=== PATIENT | male | born 1935 | race Caucasian/White ===

== ENCOUNTER 2018-08-18 11:38 | Observation (INO) | payer OTHER ==
[~2018-08-18] VITALS: Ht 170.2 cm; Wt 92.5 kg
[2018-08-18] VITALS: BP 120/78
[~2018-08-18 11:38] MED LIST: ASPIRIN EC81 M1 PO; PLAVIX 75 MG TA75 M1 PO; PREVACID15 MG PO; TOPROL XL50 MG PO; VYTORIN 10-201 EACH PO; VYTORIN 10-401 EACH PO
[2018-08-18 11:41] VITALS: BP 103/61
[2018-08-18] MEDS ORDERED: SIMVASTATIN40 MG PO (11:47)
[2018-08-18] MEDS ORDERED: OMEPRAZOLE40 MG PO (11:47)
[2018-08-18] MEDS ORDERED: FLOMAX0.4 MG PO (11:47)
[2018-08-18] MEDS ORDERED: PROSCAR 5MG TABL5 MG PO (11:47)
[2018-08-18 12:06] LABS: ABSOLUTE EOSINOPHILS 0.3 thou/uL (0.0-0.7); ABSOLUTE LYMPHOCYTES 0.8 thou/uL (0.8-5.3); ABSOLUTE MONOCYTES 0.6 thou/uL (0.0-1.2); ABSOLUTE NEUTROPHILS 5.1 thou/uL (1.6-8.1); BASOPHILS 0.5 %; EOSINOPHILS 3.9 %; HEMATOCRIT 45.6 % (42.0-52.0); HEMOGLOBIN 15.9 gm/dL (14.0-18.0); LYMPHOCYTES 11.9 %; MCHC 34.8 g/dL (28.0-37.0); MCV 92.1 fL (80.0-100.0); MONOCYTES 8.9 %; MPV 8.5 fl. (7.2-11.1); NUCLEATED RBCS 0 /100WBC; PLATELET COUNT* 190 thou/uL (150-400); POLYS 74.8 %; RBC 4.96 mil/uL (4.50-6.00); RDW-CV 15.4 % (10.5-14.5); WBC 6.9 thou/uL (4.0-11.0)
[2018-08-18 12:10] LABS: ANION GAP 9 mmol/L (7-16); BUN 22 mg/dL (7-18); CALCIUM 9.2 mg/dL (8.5-10.1); CHLORIDE 106 mmol/L (98-107); CO2 28 mmol/L (21-32); CREATININE 1.1 mg/dL (0.6-1.3); GLUCOSE 124 mg/dL (70-99); POTASSIUM 4.4 mmol/L (3.5-5.1); SODIUM 143 mmol/L (136-145)
[2018-08-18 12:20] LABS: ALBUMIN 4.2 g/dL (3.4-5.0); ALKALINE PHOSPHATASE 57 U/L (46-116); LIPASE 87 U/L (73-393); MAGNESIUM 2.1 mg/dL (1.8-2.4); NT-PRO BRAIN NAT PEPTIDE 116 pg/mL (<300); SGOT 17 U/L (15-37); SGPT 24 U/L (30-65); TOTAL PROTEIN 7.8 g/dL (6.4-8.2); TROPONIN-I LEVEL <0.06 ng/mL (<0.06)
[2018-08-18 16:40] VITALS: BP 116/69
[2018-08-18 18:21] VITALS: BP 114/70
[2018-08-18 20:10] VITALS: BP 142/77
[2018-08-19] VITALS: BP 100/78
[2018-08-19 04:00] VITALS: BP 120/57
[2018-08-19 04:40] LABS: ABSOLUTE EOSINOPHILS 0.4 thou/uL (0.0-0.7); ABSOLUTE LYMPHOCYTES 1.7 thou/uL (0.8-5.3); ABSOLUTE MONOCYTES 0.6 thou/uL (0.0-1.2); ABSOLUTE NEUTROPHILS 2.5 thou/uL (1.6-8.1); BASOPHILS 0.9 %; EOSINOPHILS 7.6 %; HEMATOCRIT 43.2 % (42.0-52.0); HEMOGLOBIN 14.9 gm/dL (14.0-18.0); LYMPHOCYTES 32.2 %; MCH 31.6 pg (26.0-34.0); MCHC 34.5 g/dL (28.0-37.0); MCV 91.6 fL (80.0-100.0); MONOCYTES 11.8 %; MPV 8.5 fl. (7.2-11.1); NUCLEATED RBCS 0 /100WBC; PLATELET COUNT* 183 thou/uL (150-400); POLYS 47.5 %; RBC 4.72 mil/uL (4.50-6.00); RDW-CV 15.5 % (10.5-14.5); WBC 5.3 thou/uL (4.0-11.0)
[2018-08-19 05:00] LABS: ANION GAP 8 mmol/L (7-16); BUN 13 mg/dL (7-18); CALCIUM 8.9 mg/dL (8.5-10.1); CHLORIDE 108 mmol/L (98-107); CHOLESTEROL 141 mg/dL (<200); CO2 27 mmol/L (21-32); CREATININE 0.9 mg/dL (0.6-1.3); GLUCOSE 114 mg/dL (70-99); HDL CHOLESTEROL 45 mg/dL (>40); LDL CHOLESTEROL 71 mg/dL (<100); MAGNESIUM 2.1 mg/dL (1.8-2.4); POTASSIUM 4.5 mmol/L (3.5-5.1); SODIUM 143 mmol/L (136-145); TC:HDL 3.1 Ratio (Not establshd); TRIGLYCERIDE 125 mg/dL (<150); VLDL 25 mg/dL (<40)
[2018-08-19 05:01] LABS: SERUM ASSESSMENT Clear
--- NOTE | 2018-08-19 07:37 | NUR ---
PT CARE ASSUMED AT 1930. SAT MAINTAINED IN RA. ALERT AND ORIENTED X4. CALL LIGHT WITHIN REACH AND BED IN LOW POSIITON. DENIES PAIN AND SOB. HOURLY ROUNDING DONE FOR PT SAFETY.
[2018-08-19 07:42] VITALS: BP 107/73
--- NOTE | 2018-08-19 10:43 | CON ---
[address] [address] CONSULTATION Name: LAURA KING Room: [address] IN .R.#: [id number] Admission: 08/18/18 Attend Phys: Bipin Donahue MD Discharge: Date of : 37 Report #: [id number] THIS REPORT FOR: //name// CC: Canelo Lester MD [facility] Gudelia Mendiola CARDIOLOGY CONSULTATION INDICATION: Chest pain. HISTORY OF PRESENT ILLNESS: The patient is a very pleasant 83-year-old gentleman with history of coronary artery disease. He has had percutaneous coronary intervention in 2005, 2011 and 2017. There is no history of myocardial infarction. He has preserved left ventricular systolic function by noninvasive studies. He presents to the Emergency Room this morning after working on a deck in his backyard and having back pain and chest pain that he describes as similar to angina. He has had in the past. EKG did not show any acute ST elevation. His initial troponin is less than 0.06. The pain has since resolved. The patient is without cardiac complaint at this time. He does report diaphoresis with the chest discomfort, but denies any other shortness of breath or nausea. PAST MEDICAL HISTORY: 1. Coronary artery disease. 2. Prostate cancer, currently on hormonal therapy. 3. Hyperlipidemia. 4. Nephrolithiasis. FAMILY HISTORY: Father had a heart attack at age 51. SOCIAL HISTORY: The patient is a lifelong nonsmoker. He does not drink alcohol. He is . His is with him today. ALLERGIES: None. HOME MEDICATIONS: Simvastatin 40 mg daily, omeprazole 20 mg daily, aspirin 162 mg daily, Nitrostat p.r.n. REVIEW OF SYSTEMS: A 14-point review of systems was positive for chest discomfort as outlined above, recently diagnosed prostate cancer with erosion to the bladder leading to hematuria, anemia, he wears glasses without acute visual change and he has dentures and bilateral hearing aids. Otherwise, 14-point review of [place] [address] CONSULTATION Name: LAURA KING Room: [address] IN ..#: [id number] Admission: 08/18/18 Attend Phys: Bipin Donahue MD Discharge: Date of : 37 Report #: [id number] PHYSICAL EXAMINATION: VITAL SIGNS: Blood pressure 103/61, pulse 63 and regular. GENERAL: This is a very pleasant gentleman who is in no distress. Mood and affect appropriate. HEENT: Extraocular muscles intact. Mucous membranes are moist. NECK: Shows no jugular venous distention. There are no carotid bruits. CHEST: Reveals clear lung khan without wheezes or rales. CARDIAC: Reveals a regular rhythm with normal S1 and S2. I do not appreciate a gallop or murmur. ABDOMEN: Reveals normal bowel sounds. The abdomen is soft, nontender. EXTREMITIES: Shows no edema. Peripheral pulses palpable. SKIN: Warm and dry. LABORATORY DATA: Reviewed. Initial troponin less than 0.06. NT-proBNP 116. Chest x-ray without acute pulmonary abnormality. EKG: No acute ST elevation. IMPRESSION AND RECOMMENDATION: 1. Chest discomfort concerning for unstable/progressive angina. We will complete rule out with serial enzymes. The patient does have recent episodes of significant bleeding. I am not starting heparin at this time. He is not on a beta brian as he has been somewhat bradycardic on no rate controlling medications. Continue daily aspirin. We will consider invasive versus noninvasive evaluation. 2. Dyslipidemia. Resume the patient's simvastatin on discharge. 3. Recently diagnosed prostate cancer with erosion to the bladder and surrounding bone. The patient is on hormonal therapy and homeopathic treatment. 4. History of hypertension, presently stable on no antihypertensive medication. <ELECTRONICALLY SIGNED> By: Rakesh Gomes MD, FACC 08/19/18 1043 1445 [id number] Gomes MD, FACC /nt
[2018-08-19] MEDS ORDERED: ASA5UEC PO (11:43)
[2018-08-19 11:46] VITALS: BP 107/73
[2018-08-19] MEDS ORDERED: ASPIR 8181 MG PO ×2 (11:49→13:49)
[2018-08-19] MEDS ORDERED: NITROGLYCERIN0.4 MG SUBLING (11:50)
--- NOTE | 2018-08-19 11:52 | NUR ---
ASSESSMENT COMPLETE. PT ALERT AND ORIENTED X4. PT DENIES CHEST PAIN. PT IS UP AD BETTIE WITH STEADY GAIT. PT NPO THIS AM FOR CARDIAC CONSULT, NICO NOW SIGNED OFF. PT IS SINUS PANKAJ ON TELE MONITOR, PROVIDERS AWARE, PT ASSYMPTOMATIC. PT IS ON ROOM AIR, VSS. IV IN LEFT AC, SALINE LOCKED. SEE ASSESSMENT AND VITALS FOR OTHER DETAILS. CALL LIGHT WITHIN REACH, WILL CONTINUE PLAN OF CARE
[2018-08-19 13:59] VITALS: BP 107/73
--- NOTE | 2018-08-19 14:28 | NUR ---
PT LEFT WITH SPOUSE. ALL BELONGINGS SENT WITH PATIENT. PT VERBALIZES UNDERSTANDING OF DC INSTRUCTIONS AND PRESCRIPTIONS GIVEN. IV DC'D WITHOUT COMPLICATIONS.
[2018-08-19 14:30] VITALS: BP 107/73
--- NOTE | 2018-08-20 13:28 | EKG ---
[place] [address] ELECTROCARDIOGRAM REPORT Name: LAURA KING Room: [address] M.R.#: [id number] Admission: 08/18/18 Attend Phys: Bipin Donahue MD Discharge: 08/19/18 Date of : 37 Report #: [id number] THIS REPORT FOR: //name// 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
== END 2018-08-19 14:30 | disposition home or self-care (01) ==
LOC: M.ERS 11:38 → M.TBA-ER 12:40 → M.2W 12:52
PROVIDERS: Emergency Medicine Emergency Medical Services; ADMIT Family Medicine
DX: R07.89 Other chest pain (principal); I25.10 Atherosclerotic heart disease of native coronary artery without angina pectoris; E78.5 Hyperlipidemia, unspecified; K21.9 Gastro-esophageal reflux disease without esophagitis; C79.51 Secondary malignant neoplasm of bone; C61 Malignant neoplasm of prostate; I10 Essential (primary) hypertension; E78.00 Pure hypercholesterolemia, unspecified; I12.9 Hypertensive chronic kidney disease with stage 1 through stage 4 chronic kidney disease, or unspecified chronic kidney disease; N18.2 Chronic kidney disease, stage 2 (mild); R42 Dizziness and giddiness; Z79.82 Long term (current) use of aspirin; Z79.899 Other long term (current) drug therapy; Z98.890 Other specified postprocedural states; Z95.5 Presence of coronary angioplasty implant and graft; N20.0 Calculus of kidney

== ENCOUNTER 2018-08-23 10:46 | Observation (INO) | payer OTHER ==
[2018-08-23] VITALS (12 sets, daily range): BP systolic 113–160; BP diastolic 60–84
[~2018-08-23] VITALS: Ht 170.2 cm; Wt 90.7 kg
--- NOTE | ~2018-08-23 | D ---
[address] [address] DISCHARGE SUMMARY Name: LAURA KING Room: [address] Brit Muir#: [id number] Admission: 08/23/18 Attend Phys: Canelo Lester MD, Discharge: Date of : 37 Report #: [id number] THIS REPORT FOR: //name// CC: Canelo Mendiola DATE OF SERVICE: 08/24/2018 DATE OF DISCHARGE: 08/24/2018 FINAL DISCHARGE DIAGNOSES: 1. Unstable angina. 2. Coronary artery disease. 3. Status post remote myocardial infarction. 4. Status post percutaneous coronary intervention of the LAD and circumflex on 08/23/2018. 5. Modest increase in troponin after stenting of the circumflex on 08/23/2018. 6. Hyperlipidemia. 7. Prostate cancer. PROCEDURES: On 08/23/2018 -- left heart catheterization, left ventriculography, selective coronary arteriography and percutaneous coronary intervention of the LAD with deployment of two drug-eluting stents in the proximal circumflex with deployment of one drug-eluting stent. 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 He has known coronary artery disease, status post prior myocardial infarction and multi-vessel stenting in 2005 several years later and 3 years ago in [place]. Recently, while working on his deck, he had severe chest and back discomfort typical of his angina radiating around to the chest. This lasted for a protracted period of time, ultimately remitting in the ER after 3 sublingual nitroglycerin tablets. He also has prostate cancer with invasion of the bone and bladder with some recent hematuria. Remarkably, in the context of hormonal therapy, the PSA is decreased from approximately 50 to 2.5 units. He is feeling much better, but did have a recent problem reflecting unstable angina. Given this data, I recommend to proceed with cardiac catheterization, which was undertaken on 08/23/2018. That study revealed tandem 90% mid and distal LAD stenosis with 90% proximal -- mid circumflex narrowing. I deployed 2 drug-eluting stents in the mid and distal LAD and one in the proximal -- mid circumflex. This was within a previously deployed stent and there was some compromise with the modest size marginal that emanated from the stented region with transitory slow flow and increase in troponin to a peak value of 15.78. The pain remitted the evening of procedure and EKG which revealed minor [facility] [address] [place] [address] DISCHARGE SUMMARY Name: LAURA KING Room: [address] MMeek#: [id number] Admission: 08/23/18 Attend Phys: Canelo Lester MD, Discharge: Date of : 37 Report #: [id number]-T alterations in the posterolateral leads return to normal by 08/24/2018. The patient ambulated in the hallways without difficulty and there was good hemostasis at the right femoral site of catheterization. LABORATORY DATA: Laboratory on 08/24/2018 revealed sodium of 139, potassium 4.3, BUN 15, creatinine 0.8 and glucose 119. Hemoglobin 15.9, white blood cell count 8800 with 196,000 platelets. DISCHARGE MEDICATIONS: The patient was discharged to home in stable condition on 08/24/2018 on the following medications: Aspirin 81 mg daily, clopidogrel or Plavix 75 mg daily with 600 mg romaine-procedural loading dose, finasteride or Proscar 5 mg daily, omeprazole 20 mg daily, simvastatin 40 mg at bedtime and tamsulosin 0.4 mg daily. [facility] Therefore, the patient is discharged to home in stable condition with followup as iterated above on the above described medications. By: 0927 [id number] Lester MD, FACC /nt
[~2018-08-23 10:46] MED LIST changes: +ASA5UEC PO; +ASPIR 8181 MG PO; +FLOMAX0.4 MG PO; +NITROGLYCERIN0.4 MG SUBLING; +OMEPRAZOLE40 MG PO; +PROSCAR 5MG TABL5 MG PO; +SIMVASTATIN40 MG PO
[2018-08-23 11:41] LABS: HEMATOCRIT 46.8 % (42.0-52.0); HEMOGLOBIN 16.2 gm/dL (14.0-18.0); MCH 31.8 pg (26.0-34.0); MCHC 34.7 g/dL (28.0-37.0); MCV 91.6 fL (80.0-100.0); MPV 8.7 fl. (7.2-11.1); RBC 5.1 mil/uL (4.50-6.00); RDW-CV 15.2 % (10.5-14.5); WBC 6.2 thou/uL (4.0-11.0)
[2018-08-23 11:56] LABS: ANION GAP 10 mmol/L (7-16); BUN 18 mg/dL (7-18); CALCIUM 9.4 mg/dL (8.5-10.1); CHLORIDE 104 mmol/L (98-107); CO2 26 mmol/L (21-32); CREATININE 0.9 mg/dL (0.6-1.3); GLUCOSE 92 mg/dL (70-99); POTASSIUM 4.6 mmol/L (3.5-5.1); SODIUM 140 mmol/L (136-145)
[2018-08-23 12:00] LABS: CHOLESTEROL 164 mg/dL (<200); HDL CHOLESTEROL 56 mg/dL (>40); LDL CHOLESTEROL 84 mg/dL (<100); TC:HDL 2.9 Ratio (Not establshd); TRIGLYCERIDE 122 mg/dL (<150); VLDL 24 mg/dL (<40)
[2018-08-23 12:01] LABS: SERUM ASSESSMENT Clear
[2018-08-23 12:19] LABS: APTT 27.2 Seconds (25.0-31.3); PROTIME 10.4 Seconds (9.20-11.50)
--- NOTE | 2018-08-23 17:21 | EKG ---
[place] [address] ELECTROCARDIOGRAM REPORT Name: LAURA KING Room: [address] M.R.#: [id number] Admission: 08/23/18 Attend Phys: Canelo Lester MD, Discharge: Date of : 37 Report #: [id number] THIS REPORT FOR: //name// [facility] Test Date: 2018-08-23 Test Time: 11:31:05 Pat Name: LAURA KING Department: Room: [facility] [place] Gender: M Location Director: : 1935 Requested By: Canelo Lester Order Number: [id number] Dominga MD: Rakesh Gomes Measurements Intervals [place] Rate: 63 P: 32 PA: 168 QRS: -32 QRSD: 83 T: 34 QT: 421 QTc: 431 Interpretive Statements Sinus arrhythmia Left axis deviation Compared to ECG 08/18/2018 11:42:33 No significant changes Electronically Signed On 08-23-2018 17:21:06 CDT by Rakesh Gomes [email or web address] <ELECTRONICALLY SIGNED> By: Rakesh Gomes MD, [facility] 08/23/18 1721 1131 113 Rakesh Gomes MD, FACC /EPI
--- NOTE | 2018-08-23 17:23 | EKG ---
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 Consultant: : 1935 Requested By: Canelo Lester Order Number: [id number] Dominga MD: Rakesh Gomes Measurements Intervals [place] Rate: 51 P: 52 GA: 176 QRS: -38 QRSD: 95 T: -7 QT: 492 QTc: 454 Interpretive Statements Sinus rhythm Left axis deviation Borderline T abnormalities, inferior leads Compared to ECG 08/18/2018 11:42:33 T-wave abnormality now present Sinus arrhythmia no longer present Electronically Signed On 08-23-2018 17:23:05 CDT by Rakesh Gomes [email or web address] <ELECTRONICALLY SIGNED> By: Rakesh Gomes MD, FACC 08/23/18 1723 1542 1542 Rakesh Gomes MD, [facility] /EPI
--- NOTE | 2018-08-23 19:52 | NUR ---
PT ARRIVED TO ROOM 200 AT APPROX 1645 FROM SYSTEMS ARCHITECT. PT ON BEDREST, RIGHT GROIN DRESSING C/D/I. PT A/O X4, ANDREAFSKI, ABLE TO EAT DINNER WITH WIFES ASSISTANCE. ADMISSION DONE CHARTED. PTS BP STABLE. PT C/O SOME CP, HE STATES IT IS BETTER THAN IT WAS. THIS WAS COMMUNICATED TO THE DR. PT INSTRUCTED TO LET NURSING STAFF KNOW IF IT WORSENS. PT VERBALIZED UNDERSTANDING. FALL PRECAUTIONS IN PLACE. CALL LIGHT IN REACH. REPORT GIVEN TO JENNIFER NAQVI.
[2018-08-23] MEDS ORDERED: OMEPRAZOLE 20 M20 M1 PO (23:48)
[2018-08-24 04:00] VITALS: BP 154/94
[2018-08-24 04:28] LABS: HEMATOCRIT 45.7 % (42.0-52.0); HEMOGLOBIN 15.9 gm/dL (14.0-18.0); MCH 31.7 pg (26.0-34.0); MCHC 34.7 g/dL (28.0-37.0); MCV 91.3 fL (80.0-100.0); MPV 8.6 fl. (7.2-11.1); RBC 5.01 mil/uL (4.50-6.00); RDW-CV 15.5 % (10.5-14.5); WBC 8.8 thou/uL (4.0-11.0)
[2018-08-24 05:11] LABS: ALBUMIN 3.7 g/dL (3.4-5.0); CALCIUM 9.2 mg/dL (8.5-10.1); CREATININE 0.8 mg/dL (0.6-1.3); POTASSIUM 4.3 mmol/L (3.5-5.1); TOTAL BILIRUBIN 0.9 mg/dL (<0.1-1.0); TOTAL PROTEIN 7.4 g/dL (6.4-8.2)
[2018-08-24 05:18] LABS: TROPONIN-I LEVEL 15.78 ng/mL (<0.06)
--- NOTE | 2018-08-24 05:22 | NUR ---
PT IS ABLE TO COMMUNICATE HIS NEEDS TO STAFF WITH MINOR DIFFICULTY; HE IS [id number]. CURRENT PAIN MEDICATION REGIMEN HAS BEEN ADEQUATE FOR CONTROLLING HIS PAIN UP TO THIS TIME. RIGHT GROIN CATH SITE DRESSING C/D/I UP TO THIS TIME. MARSHALL IS PATENT, BUT SLATED TO BE REMOVED THIS AM. POSSIBLE DISCHARGE LTER TODAY.
[2018-08-24 08:00] VITALS: BP 133/71
[2018-08-24 09:15] VITALS: BP 133/71
--- NOTE | 2018-08-24 10:10 | EKG ---
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: CKLOTZ : 1935 Requested By: Canelo Lester Order Number: [id number] Dominga MD: Prasad Cervantes Measurements Intervals [place] Rate: 57 P: 52 [place]: 184 QRS: -35 QRSD: 86 T: 65 QT: 461 QTc: 449 Interpretive Statements Sinus rhythm Atrial premature complex Left axis deviation Compared to ECG 08/23/2018 15:42:19 Atrial premature complex(es) now present Electronically Signed On 08-24-2018 10:10:22 CDT by Prasad Cervantes [email or web address] <ELECTRONICALLY SIGNED> By: Prasad Cervantes MD, [facility] 08/24/18 1010 0419 0419 Prasad Cervantes MD, [facility] /EPI
--- NOTE | 2018-08-24 10:38 | CARD ---
[address] [address] CARDIAC CATH REPORT Name: CHRISTINELAURA Mo Room: [address] M.R.#: [id number] Admission: 08/23/18 Attend Phys: Canelo Lester MD, Discharge: Date of : 37 Report #: [id number] THIS REPORT FOR: //name// APPROVED REPORT Study performed: 08/23/2018 13:53:31 Patient Details Patient Status: Out-Patient Room #: The patient is a 83 year-old male Event Personnel Canelo Lester Medical Education Specialist, Val Dixon RN Belt Maker Helper, Saroj Cosby (R) Monitor, Van Mitchell RECONCILIATION SPECIALIST Scrub Procedures Performed STEFANO Place w/wo Plasty Single LAD STEFANO Place w/wo Plasty Single CIRC; left heart catheterization left ventriculography and selective coronary arteriography Indication Unstable angina Risk Factors Hypercholesterolemia, Hypertension Previous Procedures/Diagnoses Previous PCI, Previous HI Admission/Lab Medications/Medications given during procedure Aspirin, Platelet Aff. Inhib., Angiomax bolus and infusion Procedure Narrative The patient was brought electively to the Cardiac Catheterization Laboratory and was prepped and draped in a sterile manner. The right femoral was infiltrated with 2% Lidocaine subcutaneous anesthesia. A [place] 6 FR sheath was inserted into the right femoral artery. Coronary angiography was performed using coronary diagnostic catheters. The right coronary system was accessed and visualized with a Diagnostic JR4 catheter. The left coronary system was accessed and visualized with a Diagnostic JL4 catheter. The left ventricle was accessed and visualized with a Diagnostic Straight Pigtail catheter. Left ventricular/Aortic Valve gradient assessed via catheter pullback. Left ventriculogram was performed [place] [address] CARDIAC CATH REPORT Name: TALATQasimLAURA Mo Room: [address] Wood#: [id number] Admission: 08/23/18 Attend Phys: Canelo Lester MD, Discharge: Date of : 37 Report #: [id number] Pre-demployment femoral angiogram was performed . Closure device was deployed with a Fr Angioseal STS 6Fr. The patient tolerated the procedure well and there were no complications associated with the procedure. There was no hematoma. Intraoperative Conscious Sedation Sedation start time: 14:01 Case end Time: 14:59 Fentanyl 25 mcg Versed 2 mg Fluoro Time: 17.8 minutes Dose: DAP 548394 cGycm2 2696 mGy Contrast Type and Amount: Visipaque 420 ml Diagnostic Cath Left Main 0% narrowing LAD 90% mid and distal LAD stenoses Circumflex 60% proximal circumflex narrowing and 90% mid vessel in-stent restenosis involving the takeoff of a second marginal branch Right Coronary Dominant vessel with 50% mid vessel narrowing and total distal occlusion with faint collateralization to the distal right coronary artery Left Ventriculography The left ventricle is normal in size with contractility. The left ventricular ejection fraction is estimated to be 55%. Left ventricular wall motion abnormalities are present. There is no mitral insufficiency. There is mild inferobasilar hypokinesis Hemodynamics The aortic pressure is 104/58 mmHg with a mean of 72 mmHg. The left ventricular pressure is 133/0 mmHg with a mean of mmHg. The left ventricular end diastolic pressure is 8 mmHg. There was no gradient across the aortic valve upon pullback. PCI Technique Lesion Anticoagulation was achieved with Angiomax. Patient was preloaded with Angiomax IV 13.5 ml. Percutaneous coronary intervention was performed on the mid left anterior descending artery segment. The lesion stenosis prior to intervention was 90% with CHRIS 3 flow. A 6F XB LAD 3.5 Guide Catheter was used to engage the ostium. A IG: ProwaterFlex 180CM Interventional Guidewire was used [place] [address] CARDIAC CATH REPORT Name: CHRISTINELAURA Mo Room: [address]Natalya#: [id number] Admission: 08/23/18 Attend Phys: Canelo Lester MD, Discharge: Date of : 37 Report #: [id number] BALLOON DILATION A Balloon catheter Mini Trek RX 2.0 X 12 was inserted and inflated up to 18.00atm for 9seconds. Additional Inflation: 18.00atm for 8seconds. STENT DEPLOYMENT A drug-eluting stent Bentley RX Stent 2.55Z43xw was inserted and inflated up to 12.00atm for 7seconds. Additional Inflation: 15.00atm for 7seconds. Additional Inflation: 16.00atm for 8seconds. Final angiography reveals 0 % stenosis with CHRIS 3 flow. PCI Technique Lesion 2 Percutaneous Coronary Intervention was performed on the distal left anterior descending artery segment. Patient was preloaded with Angiomax IV 13.5 ml. Percutaneous coronary intervention was performed on the distal left anterior descending artery segment. The lesion stenosis prior to intervention was 90% with CHRIS 3 flow. A 6F XB LAD 3.5 Guide Catheter was used to engage the ostium. A IG: ProwaterFlex 180CM Interventional Guidewire was used to cross the lesion. Balloon Dilation A Balloon catheter Mini Trek RX 2.0 X 12 was inserted and inflated up to 9atm for 10seconds. Additional Inflation: 14atm for 10seconds. Stent Deployment A drug-eluting stent Dany RX Stent 2.0X12mm was inserted and inflated up to 12.00atm for 8seconds. Additional Inflation: 14.00atm for 7seconds. Post Stent Deployment Balloon Dilation A Balloon catheter NC Trek RX 2.25 X 8 was inserted and inflated up to 14.00atm for 8seconds. Additional Inflation: 16.00atm for 8seconds. Additional Inflation: 15.00atm for 8seconds. Final angiography reveals 10 % stenosis with CHRIS 3 flow. PCI Technique Lesion 3 Percutaneous Coronary Intervention was performed on the mid circumflex artery segment. Patient was preloaded with Angiomax IV 13.5 ml. Percutaneous coronary intervention was performed on the mid circumflex artery segment. The lesion stenosis prior to intervention was 90% with CHRIS 3 flow. A 6F XB LAD 3.5 Guide Catheter was used to engage the ostium. A IG: ProwaterFlex 180CM Interventional Guidewire was used to cross the lesion. [address] [address] CARDIAC CATH REPORT Name: LAURA KING Room: [address] Brit Muir#: [id number] Admission: 08/23/18 Attend Phys: Canelo Lester MD, Discharge: Date of : 37 Report #: [id number] Balloon Dilation A Balloon catheter Trek RX 2.5 X 12 was inserted and inflated up to 12.00atm for 9seconds. Additional Inflation: 14.00atm for 8seconds. Stent Deployment A drug-eluting stent Dany RX Stent 2.22L02pk was inserted and inflated up to 11.00atm for 9seconds. Additional Inflation: 12.00atm for 8seconds. Final angiography reveals 20 % stenosis with CHRIS 3 flow. Comments With deployment of the mid circumflex stent, there was transitory slow flow in the second marginal branch which emanated from this region. Final cineangiograms demonstrated CHRIS-3 flow Conclusion #1 significant multivessel coronary artery disease characterized by the following: A 90% mid and distal LAD narrowings B nondominant circumflex with 60% proximal narrowing and 90% mid vessel in-stent restenosis which involve the takeoff of the second marginal branch C dominant right coronary artery with 50% mid vessel narrowing and 100% distal occlusion with faint collateralization to the distal right coronary artery #2 left ventricular ejection fraction of 55% with mild inferobasilar hypokinesis #3 normal left-sided hemodynamics study #4 successful percutaneous coronary intervention with deployment of drug-eluting stents at the sites of 90% mid and distal LAD narrowing with 0 and 10% residual narrowing following stent deployment and CHRIS-3 flow to the distal vessel #5 successful percutaneous coronary intervention with deployment of drug-eluting stent at site of 90% midcircumflex stenosis in a previously stented region with 20% residual narrowing following stent [facility] [address] [place] [address] CARDIAC CATH REPORT Name: SHAYLEEDANNQasimTEAFAVIOLA Hassan Room: [address] Brit M.R.#: [id number] Admission: 08/23/18 Attend Phys: Canelo Lester MD, Discharge: Date of : 37 Report #: [id number] deployment and CHRIS-3 flow the distal vessel; there was transitory slow flow to the second marginal branch which emanated from the stented region Recommendations Cardiac Risk Reduction Program Aggressive Medical Therapy Medications Administered Aspirin (any) Clopidogrel Diagnostic Cath Approved by: Canelo Lester MD Date/Time: 08/24/2018 10:36:35 <ELECTRONICALLY SIGNED> By: Canelo Lester MD, FACC 08/24/18 1038 1038 1038Jokami Lester MD, FAC /INF
[2018-08-24 12:09] VITALS: BP 149/87
[2018-08-24] MEDS ORDERED: PLAVIX 75 MG TA75 M1 PO (14:13)
[2018-08-24 14:14] VITALS: BP 115/84
--- NOTE | 2018-08-24 15:30 | NUR ---
RECIEVED DISCHARGE ORDERS, PT OBSERVED THROUGH 1500 TO MONITOR FOR CP. PT HAS DONE WELL AMBULTING IN [place] WITH NO CP THIS SHIFT. PT C/O MCRAE. MEDS GIVEN PER MAY. VSS, SA/PACS'/PVC'S ON THE MONITOR. PTEDUCATED ON DISCHARGE INSTRUCTIONS, SCRPIT GIVEN, PT VERBALIZED UNDERSTANDING. PT LEFT UNIT WITH AT APPROX 1525
== END 2018-08-24 15:20 | disposition home or self-care (01) ==
LOC: M.CL 10:46 → M.TBA-CV 15:32 → M.2W 15:32
PROVIDERS: ADMIT Internal Medicine
DX: I25.110 Atherosclerotic heart disease of native coronary artery with unstable angina pectoris (principal); I10 Essential (primary) hypertension; E78.00 Pure hypercholesterolemia, unspecified; E78.5 Hyperlipidemia, unspecified; C61 Malignant neoplasm of prostate; Z98.61 Coronary angioplasty status